=== PATIENT | male | born 1945 | race Caucasian/White ===

== ENCOUNTER 2018-03-22 09:46 | Inpatient (IN) | payer OTHER ==
[~2018-03-22] VITALS: Ht 175.3 cm; Wt 60.7 kg
[2018-03-22 10:42] LABS: BASOPHILS % (AUTO) 0.7 % (0.0-5.0); EOSINOPHILS % (AUTO) 0.8 % (0.0-8.0); HEMATOCRIT 45.6 % (42-54); LYMPHOCYTES % (AUTO) 7.5 % (21.0-51.0); MEAN CORPUSCULAR HEMOGLOBIN 32.2 pg (27.0-33.0); MEAN CORPUSCULAR HGB CONC 33.9 g/dL (32.0-36.0); MONOCYTES % (AUTO) 8.3 % (3.0-13.0); NEUTROPHILS % (AUTO) 82.7 % (40.0-77.0); PLATELET COUNT (AUTO) 246 K/uL (130-400); RED CELL DISTRIBUTION WIDTH 14.5 % (11.0-15.5); WHITE BLOOD COUNT (AUTO) 8.5 K/uL (4.8-10.8)
[2018-03-22 10:56] LABS: POTASSIUM 4.7 mmol/L (3.5-5.1)
[2018-03-22 11:00] LABS: ALBUMIN 3.8 g/dL (3.5-5.0); BILIRUBIN,TOTAL 0.6 mg/dL (0.2-1.0); TOTAL PROTEIN, SERUM 7.8 g/dL (6.0-8.3)
[2018-03-22] MEDS ORDERED: ONDANSETRON HCL 4 MG/2 ML VIAL ONE (11:40)
[2018-03-22] MEDS ORDERED: ZOSYN 3.375GM+NS 50ML 50 ML IV ONE (11:40)
[2018-03-22] MEDS ORDERED: SODIUM CHLORIDE 0.9% 500ML 500 ML IV ONE (11:41)
[2018-03-22] MEDS ORDERED: MORPHINE SULFATE 4 MG/1ML SYG ONE (11:41)
[2018-03-22 12:15] LABS: ERYTHROCYTE SEDIMENTATION RATE 15 MM/HR (0-20)
[2018-03-22] MEDS ORDERED: VANCOMYCIN 1GM+NS 250ML 250 ML IV ONE (12:24)
[2018-03-22] MEDS: ZOSYN 3.375GM+NS 50ML 50 ML IV SCH ×2 (13:00→21:22)
[2018-03-22] MEDS ORDERED: ONDANSETRON HCL 4 MG/2 ML VIAL IV PRN (13:00)
[2018-03-22] MEDS ORDERED: ACETAMINOPHEN 325 MG TAB PO PRN (13:00)
[2018-03-22] MEDS ORDERED: VANCOMYCIN PROTOCOL PER PHARMACY IV PRN (13:00)
[2018-03-22] MEDS ORDERED: MORPHINE SULFATE 2 MG/ML 1ML SYG IV PRN (13:00)
[2018-03-22] MEDS: INSULIN HUMULIN R 100 UNIT/ML 3ML SQ SCH ×2 (16:30→21:00)
[2018-03-22 16:40] VITALS: BP 95/62
[2018-03-22] MEDS ORDERED: TAMS0.4C32 PO (17:52)
[2018-03-22] MEDS ORDERED: TIOT18CA3 IH (17:52)
[2018-03-22] MEDS ORDERED: BUSP10TA3 PO (17:52)
[2018-03-22] MEDS ORDERED: BUPR200T34 PO (17:52)
[2018-03-22] MEDS ORDERED: BACL10TA PO (17:52)
[2018-03-22] MEDS ORDERED: LATA7.5D OP (17:52)
[2018-03-22] MEDS ORDERED: VERA120C3 PO (17:52)
[2018-03-22] MEDS ORDERED: FLUT1DIS4 IH (17:52)
[2018-03-22] MEDS ORDERED: LISI2.5T2 PO (17:52)
[2018-03-22] MEDS ORDERED: VENL-63 PO (17:52)
[2018-03-22] MEDS ORDERED: ASPI-555 PO (17:52)
[2018-03-22] MEDS ORDERED: ATOR-2 PO (17:52)
--- NOTE | 2018-03-22 18:00 | NUR ---
PT HISTORY OF WEAKNESS TO HIS LOWER EXTREMITIES AND COPD . PT HAS AT THE BEDSIDE A MOTOR SCOOTER , PT . HAS O2 ALWAYS ON AND O2 AT HOME, DUE TO HIS COPD. . REVIEW PLAN OF CARE AND FALL RISK , AND CALL LIGHT IN REACH.. .
[2018-03-22] MEDS ORDERED: KETO15CR2 TP (19:20)
--- NOTE | 2018-03-22 19:45 | NUR ---
PM Assessment Received pt alone in room, routine assessment done, plan of care discuss, made aware currently on 2 types of IV ABX treatment for his Cellulitis . Pt reminded to please call for assistance as needed, claimed he is OK, scooter at the bedside being used for long distance ambulation due to issue with SOB.
[2018-03-22 19:54] VITALS: BP 126/69
[2018-03-22] MEDS ORDERED: LATANOPROST 2.5 ML DROPS OP SCH (21:00)
[2018-03-22] MEDS: ATORVASTATIN CALCIUM 40 MG TABLET PO SCH (21:25)
[2018-03-22] MEDS: BUSPIRONE HCL 5 MG TABLET PO SCH (21:25)
[2018-03-22] MEDS: ASPIRIN 81MG TAB.CHEW PO SCH (21:25)
[2018-03-22] MEDS: TAMSULOSIN HCL 0.4 MG CAP.ER.24H PO SCH (21:26)
[2018-03-22] MEDS: BACLOFEN 10 MG TABLET PO SCH (21:26)
[2018-03-22] MEDS: IPRATROPIUM/ALBUTEROL SULFATE 3 ML SOLUTION IH SCH (23:18)
[2018-03-22 23:58] VITALS: BP 121/71
[2018-03-23 04:05] VITALS: BP 120/66
[2018-03-23] MEDS: IPRATROPIUM/ALBUTEROL SULFATE 3 ML SOLUTION IH SCH ×4 (06:12→23:36)
[2018-03-23] MEDS ORDERED: PANTOPRAZOLE SODIUM 40 MG TABLET.DR PO ONE (06:14)
[2018-03-23] MEDS: INSULIN HUMULIN R 100 UNIT/ML 3ML SQ SCH ×4 (06:15→21:00)
[2018-03-23] MEDS: ZOSYN 3.375GM+NS 50ML 50 ML IV SCH ×3 (06:16→21:02)
[2018-03-23] MEDS: BUDESONIDE 0.5 MG/2 ML INH IH SCH ×2 (06:26→18:16)
[2018-03-23] MEDS: PANTOPRAZOLE SODIUM 40 MG TABLET.DR PO SCH (06:48)
[2018-03-23 08:00] VITALS: BP 96/65
[2018-03-23] MEDS: ENOXAPARIN SODIUM 30 MG/0.3 ML SQ SCH (09:00)
[2018-03-23] MEDS ORDERED: VERAPAMIL HCL 240 MG SRTAB PO SCH (09:00)
[2018-03-23] MEDS ORDERED: LISINOPRIL 2.5 MG TABLET PO SCH (09:00)
[2018-03-23] MEDS ORDERED: NON-FORMULARY MEDICATION 1 EACH (Lisinopril 2.5 MG) PO SCH (09:00)
[2018-03-23] MEDS ORDERED: SUB TO IPRATROPIUM 0.5MG/2.5ML PER P&T IH SCH (09:00)
[2018-03-23] MEDS ORDERED: BUPROPION HCL 150 MG TABLET.SA PO SCH (09:00)
[2018-03-23] MEDS ORDERED: VENLAFAXINE HCL XR 150 MG CAP PO SCH (09:00)
[2018-03-23] MEDS: VANCOMYCIN 1GM+NS 250ML 250 ML IV SCH (09:30)
[2018-03-23] MEDS: KETOCONAZOLE 15 GM CREAM.GM. TP SCH (09:31)
[2018-03-23] MEDS: BACLOFEN 10 MG TABLET PO SCH ×2 (09:32→20:55)
[2018-03-23] MEDS: BUSPIRONE HCL 5 MG TABLET PO SCH ×2 (09:33→20:55)
[2018-03-23 12:00] VITALS: BP 122/74
[2018-03-23] MEDS ORDERED: IOHEXOL-350 75 ML VIAL IV ONE (15:24)
[2018-03-23 16:00] VITALS: BP 140/80
--- NOTE | 2018-03-23 16:20 | NUR ---
DC Plan Discussed dcp w/ patient. LIves . Semi-indep performs ADLS. [facility] has Home O2 concentrator, portable O2, nebulizer, and power chair. [facility] has 6 steps in/out with power chair. Denies any falls in last 6 months. [facility] preference is to home. Informed patient may go to SNF if IV ABX needed. 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 DCP home vs SNF if IV ABX needed. CD Addendum: 03/23/18 at 1622 by ISIS SAEZ CM Amended: Links added.
[2018-03-23 20:29] VITALS: BP 125/72
[2018-03-23] MEDS: ASPIRIN 81MG TAB.CHEW PO SCH (20:55)
[2018-03-23] MEDS: LATANOPROST 2.5 ML DROPS OP SCH (20:55)
[2018-03-23] MEDS: ATORVASTATIN CALCIUM 40 MG TABLET PO SCH (20:55)
[2018-03-23] MEDS: TAMSULOSIN HCL 0.4 MG CAP.ER.24H PO SCH (20:55)
[2018-03-23] MEDS: VERAPAMIL HCL 240 MG SRTAB PO SCH (21:00)
[2018-03-23] MEDS: BUPROPION HCL 150 MG TABLET.SA PO SCH (21:01)
[2018-03-23] MEDS: VENLAFAXINE HCL XR 37.5 MG CAP PO SCH (21:01)
[2018-03-23] MEDS: LISINOPRIL 2.5 MG TABLET PO SCH (21:01)
--- NOTE | 2018-03-23 21:10 | NUR ---
MEDS PT COMPLAINTS OF MILD PAINS TO RT ANKLE AREA. DUE MEDS ADMINISTERED AND TYLENOL PO GIVEN FOR PAINS, TOLERATED WELL. KEPT RESTED AND COMFORTABLE IN CHAIR. LEFT STILL WATCHING TV. CALL LIGHT WITHIN REACH. WILL CONTINUE TO MONITOR.
[2018-03-24] MEDS: VANCOMYCIN 1GM+NS 250ML 250 ML IV SCH (00:36)
[2018-03-24 01:18] VITALS: BP 102/61
--- NOTE | 2018-03-24 02:00 | NUR ---
ROUNDS PT RESTING WELL, FAIRLY ASLEEP WITH RESPIRATIONS EVEN AND UNLABORED. NO NOTED DISTRESS. KEPT UNDISTURBED FOR NOW. CALL LIGHT WITHIN REACH.
[2018-03-24 04:46] VITALS: BP 93/59
[2018-03-24] MEDS: ZOSYN 3.375GM+NS 50ML 50 ML IV SCH ×3 (04:49→21:05)
--- NOTE | 2018-03-24 05:40 | NUR ---
ROUNDS PT STILL FAIRLY ASLEEP WITH RESPIRATIONS EVEN AND UNLABORED. NO DISTRESS NOTED. KEPT COMFORTABLE AND RESTED. FOR MORE CARE.
[2018-03-24] MEDS: PANTOPRAZOLE SODIUM 40 MG TABLET.DR PO SCH (06:03)
[2018-03-24] MEDS: BUDESONIDE 0.5 MG/2 ML INH IH SCH ×2 (06:08→18:30)
[2018-03-24] MEDS: IPRATROPIUM/ALBUTEROL SULFATE 3 ML SOLUTION IH SCH ×4 (06:08→23:07)
[2018-03-24 06:09] LABS: BASOPHILS % (AUTO) 0.5 % (0.0-5.0); EOSINOPHILS % (AUTO) 2.8 % (0.0-8.0); HEMATOCRIT 41.6 % (42-54); MEAN CORPUSCULAR HEMOGLOBIN 32.5 pg (27.0-33.0); MEAN CORPUSCULAR HGB CONC 34.3 g/dL (32.0-36.0); MEAN CORPUSCULAR VOLUME 94.6 fL (79-99); MONOCYTES % (AUTO) 12.9 % (3.0-13.0); NEUTROPHILS % (AUTO) 69.8 % (40.0-77.0); PLATELET COUNT (AUTO) 230 K/uL (130-400); RED BLOOD CELL COUNT(AUTO) 4.39 MIL/uL (4.50-6.20); RED CELL DISTRIBUTION WIDTH 14.1 % (11.0-15.5); WHITE BLOOD COUNT (AUTO) 6.5 K/uL (4.8-10.8)
[2018-03-24 06:24] LABS: CREATININE 0.8 mg/dL (0.5-1.5); POTASSIUM 3.8 mmol/L (3.5-5.1)
[2018-03-24] MEDS: INSULIN HUMULIN R 100 UNIT/ML 3ML SQ SCH ×4 (06:45→20:19)
[2018-03-24 08:00] VITALS: BP 81/53
[2018-03-24] MEDS: ENOXAPARIN SODIUM 30 MG/0.3 ML SQ SCH (09:00)
[2018-03-24] MEDS: LISINOPRIL 2.5 MG TABLET PO SCH (09:00)
[2018-03-24] MEDS: VERAPAMIL HCL 240 MG SRTAB PO SCH (09:00)
[2018-03-24] MEDS: BUSPIRONE HCL 5 MG TABLET PO SCH ×2 (09:28→21:06)
[2018-03-24] MEDS: BACLOFEN 10 MG TABLET PO SCH ×2 (09:29→21:06)
[2018-03-24] MEDS: BUPROPION HCL 150 MG TABLET.SA PO SCH (09:29)
[2018-03-24] MEDS: VENLAFAXINE HCL XR 37.5 MG CAP PO SCH (09:30)
[2018-03-24] MEDS: KETOCONAZOLE 15 GM CREAM.GM. TP SCH (09:31)
[2018-03-24 12:00] VITALS: BP 114/63
--- NOTE | 2018-03-24 14:50 | NUR ---
RD Notification - Trigger Patient admitted for Cellulitis of right foot and PVD. Patient with low BMI 19.8, however patient reports no recent weight loss and tolerating 75gm CCD with 100% PO intake and no report of GI distress. All patient labs WNL. RD to continue to monitor nutritional labs and PO intake. Please notify RD as nutritional concerns arise. Thank you. Addendum: 03/24/18 at [address] RD Amended: Links added.
[2018-03-24 16:00] VITALS: BP 112/60
[2018-03-24 20:00] VITALS: BP 112/73
[2018-03-24] MEDS: TAMSULOSIN HCL 0.4 MG CAP.ER.24H PO SCH (21:05)
[2018-03-24] MEDS: LATANOPROST 2.5 ML DROPS OP SCH (21:05)
[2018-03-24] MEDS: ATORVASTATIN CALCIUM 40 MG TABLET PO SCH (21:06)
[2018-03-24] MEDS: ASPIRIN 81MG TAB.CHEW PO SCH (21:06)
[2018-03-25] VITALS: BP 123/70
[2018-03-25] MEDS: VANCOMYCIN 1GM+NS 250ML 250 ML IV SCH (02:19)
[2018-03-25 04:00] VITALS: BP 94/65
[2018-03-25] MEDS: ZOSYN 3.375GM+NS 50ML 50 ML IV SCH ×3 (05:20→21:41)
[2018-03-25] MEDS: INSULIN HUMULIN R 100 UNIT/ML 3ML SQ SCH ×4 (06:36→21:00)
[2018-03-25] MEDS: PANTOPRAZOLE SODIUM 40 MG TABLET.DR PO SCH (06:37)
[2018-03-25] MEDS ORDERED: VANCOMYCIN 2.25 GM in SODIUM CHLORIDE 0.9% 500ML 500 ML IV SCH (06:49)
[2018-03-25] MEDS: IPRATROPIUM/ALBUTEROL SULFATE 3 ML SOLUTION IH SCH ×4 (06:57→23:12)
[2018-03-25] MEDS: BUDESONIDE 0.5 MG/2 ML INH IH SCH ×2 (07:11→18:53)
[2018-03-25 08:00] VITALS: BP 126/97
[2018-03-25] MEDS ORDERED: SULF1TAB42 PO (08:45)
[2018-03-25] MEDS: VERAPAMIL HCL 240 MG SRTAB PO SCH (09:00)
[2018-03-25] MEDS: ENOXAPARIN SODIUM 30 MG/0.3 ML SQ SCH (09:00)
[2018-03-25] MEDS: LISINOPRIL 2.5 MG TABLET PO SCH (09:38)
[2018-03-25] MEDS: BUSPIRONE HCL 5 MG TABLET PO SCH ×2 (09:38→21:41)
[2018-03-25] MEDS: BUPROPION HCL 150 MG TABLET.SA PO SCH (09:39)
[2018-03-25] MEDS: BACLOFEN 10 MG TABLET PO SCH ×2 (09:39→21:42)
[2018-03-25] MEDS: VENLAFAXINE HCL XR 37.5 MG CAP PO SCH (09:39)
[2018-03-25] MEDS: KETOCONAZOLE 15 GM CREAM.GM. TP SCH (09:40)
[2018-03-25 12:00] VITALS: BP 126/72
[2018-03-25 16:00] VITALS: BP 132/76
[2018-03-25 20:59] VITALS: BP 122/73
[2018-03-25] MEDS: VANCOMYCIN 500MG+NS 100ML 100 ML IV SCH (21:41)
[2018-03-25] MEDS: ATORVASTATIN CALCIUM 40 MG TABLET PO SCH (21:42)
[2018-03-25] MEDS: ASPIRIN 81MG TAB.CHEW PO SCH (21:42)
[2018-03-25] MEDS: TAMSULOSIN HCL 0.4 MG CAP.ER.24H PO SCH (21:42)
[2018-03-25] MEDS: LATANOPROST 2.5 ML DROPS OP SCH (21:49)
[2018-03-26 00:17] VITALS: BP 132/78
[2018-03-26 04:12] VITALS: BP 136/76
[2018-03-26] MEDS: ZOSYN 3.375GM+NS 50ML 50 ML IV SCH (05:35)
[2018-03-26] MEDS: IPRATROPIUM/ALBUTEROL SULFATE 3 ML SOLUTION IH SCH ×2 (06:11→11:24)
[2018-03-26] MEDS: BUDESONIDE 0.5 MG/2 ML INH IH SCH (06:14)
[2018-03-26] MEDS: PANTOPRAZOLE SODIUM 40 MG TABLET.DR PO SCH (06:31)
[2018-03-26] MEDS: INSULIN HUMULIN R 100 UNIT/ML 3ML SQ SCH (06:32)
[2018-03-26 08:00] VITALS: BP 100/64
[2018-03-26] MEDS: VANCOMYCIN 500MG+NS 100ML 100 ML IV SCH (09:00)
[2018-03-26] MEDS: VERAPAMIL HCL 240 MG SRTAB PO SCH (09:00)
[2018-03-26] MEDS: KETOCONAZOLE 15 GM CREAM.GM. TP SCH (09:00)
[2018-03-26] MEDS: VENLAFAXINE HCL XR 37.5 MG CAP PO SCH (09:00)
[2018-03-26] MEDS: ENOXAPARIN SODIUM 30 MG/0.3 ML SQ SCH (09:00)
[2018-03-26] MEDS: LISINOPRIL 2.5 MG TABLET PO SCH (10:27)
[2018-03-26] MEDS: BUPROPION HCL 150 MG TABLET.SA PO SCH (10:27)
[2018-03-26] MEDS: BUSPIRONE HCL 5 MG TABLET PO SCH (10:27)
[2018-03-26] MEDS: BACLOFEN 10 MG TABLET PO SCH (10:28)
--- NOTE | 2018-03-26 11:56 | NUR ---
PATIENT DISCHARGE PATIENT DISCHARGED, IV DISCONTINUED, BLEEDING CONTROLLED, CATHLON INTACT, PATIENT TOLERATED WITHOUT INCIDENT.
== END 2018-03-26 12:15 | disposition home or self-care (01) | DRG 300 ==
LOC: EDH 09:46 → 3BH 12:54
PROVIDERS: ADMIT Hospitalist; ATTEND Hospitalist
DX: E11.51 Type 2 diabetes mellitus with diabetic peripheral angiopathy without gangrene (principal); L03.115 Cellulitis of right lower limb; I10 Essential (primary) hypertension; E11.65 Type 2 diabetes mellitus with hyperglycemia; J44.9 Chronic obstructive pulmonary disease, unspecified; Z87.891 Personal history of nicotine dependence; Z99.81 Dependence on supplemental oxygen
CPT/HCPCS: 36415; 73600; 73702; 78315; 80048; 80053; 80202; 82948; 83605; 85025; 85651; 87040; 94640; 94664; A9503; G0378; J1650; J2270; J2405; J2543; J3370; J7040; Q9967

== ENCOUNTER 2018-04-05 12:07 | Inpatient (IN) | payer OTHER | END 2018-04-11 15:35 | disposition home or self-care (01) | LOC: EDH 12:07 → EDHIP 16:20 → 3CH 18:37 | DX: J44.1 Chronic obstructive pulmonary disease with (acute) exacerbation (principal); J96.20 Acute and chronic respiratory failure, unspecified whether with hypoxia or hypercapnia; L03.115 Cellulitis of right lower limb; F43.10 Post-traumatic stress disorder, unspecified; E11.65 Type 2 diabetes mellitus with hyperglycemia; E11.40 Type 2 diabetes mellitus with diabetic neuropathy, unspecified; E11.51 Type 2 diabetes mellitus with diabetic peripheral angiopathy without gangrene; K59.00 Constipation, unspecified ==